=== PATIENT | female | born 1960 | race American Indian/Alaskan Native ===

== ENCOUNTER 2017-06-04 07:00 | Day surgery (SDC) | payer OTHER ==
[~2017-06-04] VITALS: Ht 160 cm; Wt 117.9 kg
[~2017-06-04 07:00] MED LIST: BENADRYL25 MG PO; CELEBREX200 MG PO; CIPRO500 MG PO; CIPROFLOXACIN1 EACH OT; CYCLOBENZAPRINE10 MG PO; FLAGYL500 MG PO; FLEXERIL10 MG PO; FLOMAX0.4 MG PO; FOLIC ACID1 MG PO; GABAPENTIN100 MG PO; GABAPENTIN300 MG PO; GABAPENTIN400 MG PO; LEVAQUIN750 MG PO; LORTAB 7.5-5001 EACH PO; METHOTREXATE2.5 MG PO; NORCO 10-325 T1 EACH PO; NORCO 5-325 TA1 EACH PO; PERCOCET 5-3251 EACH PO; PROMETHAZINE HC25 M1 PO; PROTONIX40 MG PO; TIZANIDINE HCL4 MG PO; TREXALL5 MG PO; ULTRAM50 MG PO
[2017-06-04] MEDS ORDERED: TIZANIDINE HCL2 M1 PO (07:12)
[2017-06-04] MEDS ORDERED: ONDANSETRON ODT4 MG PO (07:14)
--- NOTE | 2017-06-04 09:25 | NUR ---
06/04/17 0925 Cintia Christianson 0849-PATIENT ARRIVED TO PACU ON 4L NC O2 SAT 100% PATIEN REACTIVE EYES OPEN ENCOURAGED TO PASS FLATUS.
--- NOTE | 2017-06-05 06:26 | OR ---
[facility] [address], [place] [address] Signed DATE OF OPERATION: 06/04/2017 SURGEON: Mary Ferreira MD PREOPERATIVE DIAGNOSES: 1. Gastroparesis. 2. Gastroesophageal reflux disease. POSTOPERATIVE DIAGNOSIS: Unremarkable upper endoscopy. PROCEDURE: Upper endoscopy with CLOtest and biopsies of the antrum. ESTIMATED BLOOD LOSS: None. INDICATIONS: Shawna is a 57-year-old female with a known history of gastroparesis and acid reflux. She had actually considered having a laparoscopic pyloroplasty. She decided against that. She felt gastroparesis was getting worse along with her acid reflux. She thought her methotrexate was bothering her and she stopped that as well. She discussed this with her primary care provider. She was asked to come see me for a repeat upper endoscopy to evaluate the stomach. In the office, I gave her a pamphlet on upper endoscopy. She is very familiar with this process having gone through it several times before. Because of her heavy thick neck and her need for daily [place] and her allergies to fentanyl and so forth, we asked that Anesthesia provide her help with increased monitoring sedation with propofol as we have done before. She had expressed understanding and wished to proceed. PROCEDURE NOTE: Shawna was taken into our endoscopy suite and placed in a supine semi-recumbent position. A bite block was utilized. She was given IV sedation with propofol per nurse hr systems analyst. The adult gastroscope was introduced and advanced readily out into the third portion of the duodenum under direct visualization of the camera without difficulty. Her duodenum and pyloric channel were unremarkable. We saw no retained food in her stomach. Very little, if any, erythema in the stomach. We went ahead and took a biopsy of the antrum for CLOtest as well as pathologic review. Upon retroflexion of the scope, I do not see any evidence of a hiatal hernia. There were no gastric or esophageal varices. The scope was withdrawn up through the area of the GE junction, which was Electronically Signed By: MARY FERREIRA MD 06/05/17 0626 PATIENT NAME: SHAWNA ROD OPERATIVE REPORT DATE OF : 60 PHYSICIAN: MARY FERREIRA MD REPORT #: [id number] REPORT IS CONFIDENTIAL AND NOT TO BE RELEASED WITHOUT AUTHORIZATION [facility] [address] [place] [id number] Signed compliant without stricture. There was no evidence any Sanchez's mucosa, no distal esophagitis. The middle and upper esophagus were unremarkable. After this, the gas was suctioned out and the gastroscope removed. Shawna tolerated the procedure quite well. RECOMMENDATIONS: I will see Shawna back in my office in 7 to 14 days to review her results. MD ISRAEL Zambrano/MARCIE /[id number] cc: MD Yakov Upton MD Electronically Signed By: MARY FERREIRA MD 06/05/17 0626 PATIENT NAME: SHAWNA ROD OPERATIVE REPORT DATE OF : 60 PHYSICIAN: MARY FERREIRA MD REPORT #: [id number] REPORT IS CONFIDENTIAL AND NOT TO BE RELEASED WITHOUT AUTHORIZATION
== END 2017-06-04 10:02 | disposition home or self-care (01) ==
LOC: OPS 07:00 → DS 07:30 → OPS 07:30
PROVIDERS: Colon & Rectal Surgery
PROC: 0DB68ZX Excision of Stomach, Via Natural or Artificial Opening Endoscopic, Diagnostic (ICD-10-PCS; principal; 2017-06-04 08:15)
DX: K31.84 Gastroparesis (principal); K21.9 Gastro-esophageal reflux disease without esophagitis; E55.9 Vitamin D deficiency, unspecified; E66.01 Morbid (severe) obesity due to excess calories; M19.90 Unspecified osteoarthritis, unspecified site; M06.9 Rheumatoid arthritis, unspecified; G25.81 Restless legs syndrome; F41.9 Anxiety disorder, unspecified; F32.9 Major depressive disorder, single episode, unspecified; D51.0 Vitamin B12 deficiency anemia due to intrinsic factor deficiency; M79.7 Fibromyalgia; Z90.49 Acquired absence of other specified parts of digestive tract; Z96.653 Presence of artificial knee joint, bilateral; F17.200 Nicotine dependence, unspecified, uncomplicated; Z91.040 Latex allergy status; Z88.0 Allergy status to penicillin; Z88.1 Allergy status to other antibiotic agents; Z88.8 Allergy status to other drugs, medicaments and biological substances; Z79.899 Other long term (current) drug therapy; Z68.42 Body mass index [BMI] 45.0-49.9, adult
CPT/HCPCS: 00740; 86677; J2250; J2704; J3010; J7120

== ENCOUNTER 2019-04-22 16:24 | Emergency (ER) | payer OTHER ==
[~2019-04-22] VITALS: Ht 160 cm; Wt 117.9 kg
[~2019-04-22 16:24] MED LIST changes: +ONDANSETRON ODT4 MG PO; +TIZANIDINE HCL2 M1 PO
--- OUTSIDE RECORDS SUMMARY | 2019-04-22 16:26 | XMS ---
PreManage Notification: BENNETT ROD Security Real Estate Associate Events No recent Security Events currently on file [facility] There are no care providers on record at this time. Arin has no Care Guidelines for this patient. Sendy VISIT COUNT (12 MO.) 1 ROB Velásquez TOTAL 1 NOTE: Visits indicate total known visits. ED/C VISIT TRACKING (12 MO.) 04/22/2019 16:24 ROB Elena OR TYPE: Emergency COMPLAINT: - DIZZINESS, HEADACHE INPATIENT VISIT TRACKING (12 MO.) No inpatient visits to display in this time frame [email or web address]
[2019-04-22] MEDS ORDERED: DOXYCYCLINE HY100 MG PO (20:09)
[2019-04-22] MEDS ORDERED: PREDNISONE20 MG PO (20:09)
[2019-04-22] MEDS ORDERED: SUDAFED 12 HOU120 MG PO (20:09)
== END 2019-04-22 20:46 | disposition home or self-care (01) ==
LOC: ED 16:24
DX: J32.9 Chronic sinusitis, unspecified (principal); H69.90 Unspecified Eustachian tube disorder, unspecified ear; H83.09 Labyrinthitis, unspecified ear; Z87.442 Personal history of urinary calculi; K21.9 Gastro-esophageal reflux disease without esophagitis; Z88.0 Allergy status to penicillin; Z91.040 Latex allergy status; Z91.048 Other nonmedicinal substance allergy status; Z88.6 Allergy status to analgesic agent; Z79.899 Other long term (current) drug therapy
CPT/HCPCS: 96372; 99283-25; J1885

== ENCOUNTER 2019-06-23 05:45 | Day surgery (SDC) | payer OTHER ==
[~2019-06-23] VITALS: Ht 160 cm; Wt 122.9 kg
[~2019-06-23 05:45] MED LIST changes: +DOXYCYCLINE HY100 MG PO; +PREDNISONE20 MG PO; +SUDAFED 12 HOU120 MG PO; +VITAMIN B122500 MCG PO; +VITAMIN D50000 UNI1 PO
--- NOTE | 2019-06-23 08:01 | NUR ---
06/23/19 0801 Zoya Angel 0753 PT ARRIVES TO PACU AND IS GRIMACING. PT REPORTS BP CUFF HURTING, PT REPORTS PAIN IN ABD 6/10 AND NAUSEA. PT ENCOURAGED TO PASS MEGHANN/AIR. 0757 PT ASLEEP. RESP EVEN AND UNLABORED. 0800 PT WOKE GRIMACING AND REPORTS LARGE AMOUNT OF GAS PAIN. PT TRUNED MORE ON LEFT SIDE AND KNEES PULL UP TO ABD MORE. PT ENCOURAGED TO TRY AND PASS GAS.
--- NOTE | 2019-06-23 22:29 | OR ---
[facility] [address], [place] [address] Signed DATE OF OPERATION: 06/23/2019 SURGEON: Mary Ferreira MD PREOPERATIVE DIAGNOSIS: Personal history of colonic polyps (2009). POSTOPERATIVE DIAGNOSES: 1. A 4 mm polyp, mid right colon. 2. [id number]-[id number] internal hemorrhoids. PROCEDURE: Colonoscopy with hot biopsy. ESTIMATED BLOOD LOSS: None. INDICATIONS: Shawna is a 59-year-old obese female, who is here for followup colonoscopy. She had a serrated adenomatous polyp removed back in 2009. Her colonoscopy in 2013 was unremarkable. She is currently on hydrocodone 10 mg t.i.d. through her rn concurrent review. She has had both knees replaced as well. She has no lower GI complaints. There is no family history of colon cancer or polyps. In the office, I gave her a pamphlet on colonoscopy. We looked at that together. She recalls that quite well. She understands there are risks including, but not limited to gas, bloating, crampy abdominal pain, bleeding, perforation requiring surgery, and missed diagnosis. Also, because of her daily need for hydrocodone as well as her multiple allergies and her very around full face and heavy neck and heavy chest, we asked an anesthesia provider help us with increased monitoring and infusion of propofol. She had expressed understanding and wished to proceed. PROCEDURE NOTE: Shawna was taken into our endoscopy suite and placed in the left lateral decubitus position. She was given IV sedation with propofol per our nurse quality control lab technician. A digital rectal exam was performed and this was unremarkable. The adult colonoscope was introduced and advanced all around into the cecum under direct visualization of camera. It took just a little extra propofol and some abdominal compression in order to move the scope directly into the cecum itself. Overall, her prep was good. There were several areas of liquid stool that was suctioned out. We could easily see the appendiceal orifice and ileocecal valve. The scope was slowly withdrawn. We took pictures Electronically Signed By: MARY FERREIRA MD 06/23/19 2229 PATIENT NAME: SHAWNA ROD OPERATIVE REPORT DATE OF : 60 REPORT #: [id number] PHYSICIAN: MARY FERREIRA MD PCP: KARENA GUTIERREZ REPORT IS CONFIDENTIAL AND NOT TO BE RELEASED WITHOUT AUTHORIZATION [facility] [address] [place] [id number] Signed throughout for photodocumentation. She had just a small 4 mm polyp in the mid right colon easily removed with the help of hot biopsy forceps. There was no diverticulosis. The rectum was unremarkable. Upon retroflexion of the scope, she did have just minimal to moderate internal hemorrhoid columns. After this, the gas was suctioned out. The colonoscope removed. Shawna tolerated the procedure quite well. RECOMMENDATIONS: I will see Shawna back in my office in 7 to 14 days to review her results. I suspect she will stay on the 5-year rotation. Mary Ferreira MD ALB/MODL /[id number] cc: MD Karena Upton, CREW CALLER Mary Ferreira MD Copies: NEIDA RUVALCABA MD, ANDREW L MD ~ Electronically Signed By: MARY FERREIRA MD 06/23/19 2229 PATIENT NAME: SHAWNA ROD OPERATIVE REPORT DATE OF : 60 REPORT #: [id number] PHYSICIAN: MARY FERREIRA MD PCP: KARENA GUTIERREZ SERVICES REP-C REPORT IS CONFIDENTIAL AND NOT TO BE RELEASED WITHOUT AUTHORIZATION
== END 2019-06-23 08:34 | disposition home or self-care (01) ==
LOC: DS 05:45 → OPS 05:45 → DS 06:45 → OPS 06:45
PROVIDERS: Colon & Rectal Surgery
PROC: 0DBF8ZZ Excision of Right Large Intestine, Via Natural or Artificial Opening Endoscopic (ICD-10-PCS; principal; 2019-06-23 06:45)
DX: Z12.11 Encounter for screening for malignant neoplasm of colon (principal); D12.2 Benign neoplasm of ascending colon; K64.8 Other hemorrhoids; J32.9 Chronic sinusitis, unspecified; K21.9 Gastro-esophageal reflux disease without esophagitis; E55.9 Vitamin D deficiency, unspecified; E66.01 Morbid (severe) obesity due to excess calories; M17.9 Osteoarthritis of knee, unspecified; M06.9 Rheumatoid arthritis, unspecified; F32.9 Major depressive disorder, single episode, unspecified; F41.9 Anxiety disorder, unspecified; Z88.0 Allergy status to penicillin; Z86.010 Personal history of colon polyps; Z79.899 Other long term (current) drug therapy; Z98.890 Other specified postprocedural states; Z88.8 Allergy status to other drugs, medicaments and biological substances; Z91.040 Latex allergy status; Z68.42 Body mass index [BMI] 45.0-49.9, adult
CPT/HCPCS: J2704; J3490; J7121

== ENCOUNTER 2022-10-30 14:35 | Emergency (ER) | payer OTHER ==
[~2022-10-30] VITALS: Ht 160 cm; Wt 122.9 kg
--- OUTSIDE RECORDS SUMMARY | 2022-10-30 14:36 | XMS ---
PreManage Notification: BENNETT ROD Security Crisis Counselor Events No recent Security Events currently on file CRITERIA MET - [facility] CARE PROVIDERS -, [place]- Dentist: Acquisition Specialist [facility] PHONE: [phone] DEREK GUTIERREZ Nurse Practitioner 04/23/2019-Current PHONE: [phone] Arin has no Care Guidelines for this patient. Care History Medical/Surgical 04/23/2019 [facility] \T\middot;\T\nbsp; PATIENT- [facility] ELIGIBLE \T\middot;\T\nbsp; PLEASE REFER PATIENT TO [facility] FOR NON EMERGENT MEDICAL NEEDS. \T\middot;\ T\nbsp; [facility] CAN SEE PATIENTS SAME DAY FOR APTS IF PATIENT CALLS FIRST THING IN THE MORNING. E.D. VISIT COUNT (12 MO.) 1 ROB Velásquez TOTAL 1 NOTE: Visits indicate total known visits. ED/UCC VISIT TRACKING (12 MO.) 10/30/2022 14:35 ROB Elena OR TYPE: Emergency COMPLAINT: - CHEST PAIN INPATIENT VISIT TRACKING (12 MO.) No inpatient visits to display in this time frame [email or web address]
--- NOTE | 2022-10-30 20:17 | EKG ---
[facility] [address] [facility] [place] [address] Signed Normal sinus rhythm with sinus arrhythmia Normal ECG When compared with ECG of 14-JUN-2019 11:14, No significant change was found Confirmed by Ellen Hernandez MD () on 10/30/2022 8:16:54 PM Electronically Signed By: ELLEN HERNANDEZ MD 10/30/222016 PATIENT NAME: BENNETT ROD CHEYANNE Electrocardiogram DATE OF : 60 PHYSICIAN: ELLEN HERNANDEZ MD REPORT #: [id number] REPORT IS CONFIDENTIAL AND NOT TO BE RELEASED WITHOUT AUTHORIZATION
== END 2022-10-30 16:21 | disposition home or self-care (01) ==
LOC: ED 14:35
DX: R07.89 Other chest pain (principal); M06.9 Rheumatoid arthritis, unspecified; K21.9 Gastro-esophageal reflux disease without esophagitis; Z88.0 Allergy status to penicillin; Z91.040 Latex allergy status; Z91.048 Other nonmedicinal substance allergy status; Z79.899 Other long term (current) drug therapy
CPT/HCPCS: 36415; 71045; 80053; 84484; 85025; 93005; 93010; 96374; 99285-25; A9270; J1885

== ENCOUNTER 2024-04-07 09:39 | Emergency (ER) | payer OTHER ==
[~2024-04-07] VITALS: Ht 160 cm; Wt 96.7 kg
[2024-04-07] MEDS ORDERED: SODIUM CHLORIDE 0.9% 1,000 ML IV ONE (10:00)
[2024-04-07] MEDS ORDERED: droPERidol 5 MG/2 ML VIAL IV ONE (10:00)
[2024-04-07] MEDS ORDERED: diphenhydrAMINE HCL 50 MG/ML VIAL IV ONE (10:00)
[2024-04-07] MEDS ORDERED: KETOROLAC TROMETHAMINE 15 MG/ML VIAL IV ONE (10:00)
[2024-04-07 10:16] LABS: BASOPHILS 1.9 % (0-2); EOSINOPHILS 1.1 % (0-6); HEMATOCRIT 41.9 % (35.0-50.0); HEMOGLOBIN 14.1 g/dL (12.0-18.0); LYMPHOCYTES 43.7 % (24-44); MCH 28.9 (27-36); MCHC 33.7 g/dl (30-36); MCV 85.6 fl (81-99); MONOCYTES 5.2 % (0-12); NEUTROPHILS 48.1 % (39-80); PLATELET COUNT 259 K/uL (140-440); RDW 12.9 (10.5-15.0)
[2024-04-07 10:31] LABS: ALBUMIN 3.1 g/dL (3.4-5.0); ALBUMIN/GLOBULIN RATIO 0.69 (1.1-2.4); ANION GAP 11.2 (7-21); BUN/CREATININE RATIO 4.09 (6.0-28.6); CALCIUM 8.9 mg/dL (8.5-10.1); CREATININE, SERUM 1.22 mg/dL (0.55-1.02); POTASSIUM 3.2 mmol/L (3.5-5.1); PROTEIN, TOTAL 7.6 g/dL (6.4-8.2)
[2024-04-07] MEDS ORDERED: POTASSIUM CHLORIDE 10 MEQ/100 ML BAG IV ONE (11:15)
[2024-04-07] MEDS ORDERED: PROMETHAZINE HC25 M1 PO (11:56)
[2024-04-07 13:04] VITALS: BP 122/79
== END 2024-04-07 13:08 | disposition home or self-care (01) ==
LOC: ED 09:39
PROVIDERS: Emergency Medicine
DX: K31.84 Gastroparesis (principal); K21.9 Gastro-esophageal reflux disease without esophagitis; M06.9 Rheumatoid arthritis, unspecified; Z88.0 Allergy status to penicillin; Z91.048 Other nonmedicinal substance allergy status; Z91.040 Latex allergy status; Z88.6 Allergy status to analgesic agent; Z79.899 Other long term (current) drug therapy
CPT/HCPCS: 36415; 74177; 80053; 83690; 83735; 85025; 96361; 96375; 99284-25; J1200; J1790; J1885; J3480; J7030; Q9967